=== PATIENT | female | born 1995 | race American Indian/Alaskan Native ===

== ENCOUNTER 2021-05-01 16:13 | Emergency (ER) | payer SELFPAY ==
[2021-05-01] MEDS ORDERED: ONDANSETRON 4 MG/2 ML INJ IV ONE ×2 (17:06→21:50)
[2021-05-01] MEDS ORDERED: SODIUM CHLORIDE 0.9% 1000 ML 1,000 ML IV ONE (17:06)
[2021-05-01] MEDS ORDERED: FAMOTIDINE 20 MG/2 ML INJ IV ONE (17:06)
[2021-05-01] MEDS ORDERED: DICYCLOMINE 20 MG/2 ML INJ IM ONE (17:06)
--- NOTE | 2021-05-01 17:10 | Emergency Department Report ---
ED General Adult HPI - General Chief complaint: Abdominal Pain Stated complaint: VOMITING/CHILLS Time Seen by Provider: 05/01/21 16:57 Source: patient Mode of arrival: Ambulatory Limitations: No Limitations - History of Present Illness Initial comments: 26-year-old female patient with history of endometriosis presents to the emergency department with complaints of chills, abdominal pain, nausea, and vomiting starting last night. Patient states she has experienced approximately 10 episodes of nonbloody emesis in the last 24 hours. Pain is localized to the left side of the abdomen. Patient reportedly began her menstrual cycle yesterday. Her last menstrual cycle was 4 weeks ago. No recent travel. No known sick contacts. No current steroid or antibiotic use. Patient attempted to take Tylenol and Aleve prior to arrival, but was unable to keep down the medications. No history of prior abdominal surgeries. Denies fever, diarrhea, constipation, painful urination, black/bloody stools. Denies all other complaints at this time. - Related Data Home Medications Medication Instructions Recorded Confirmed Last Taken Hyoscyamine Sulfate [Anaspaz] 0.125 mg PO Q4H PRN 09/28/13 09/28/13 09/28/13 19:00 Nitrofurantoin [place]/M-Cryst 100 mg PO Q12HR 09/28/13 09/28/13 09/28/13 19:00 [Macrobid] Ondansetron [Zofran] 4 mg PO Q8HR PRN 09/28/13 09/28/13 09/28/13 19:00 Previous Rx's Medication Instructions Recorded Last Taken Type Ranitidine HCl [Zantac] 300 mg PO QDAY #30 tablet 09/29/13 Unknown Rx Dicyclomine [Bentyl] 20 mg PO QID #20 tablet 05/02/21 Unknown Rx Metoclopramide [Reglan] 10 mg PO TID #20 tab 05/02/21 Unknown Rx levoFLOXacin [Levaquin] 750 mg PO QDAY 5 Days tablet 05/02/21 Unknown Rx metroNIDAZOLE [Flagyl] 500 mg PO Q12HR 5 Days tab 05/02/21 Unknown Rx Allergies Allergy/AdvReac Type Severity Reaction Status Date / Time No Known Allergies Allergy Unverified 05/21/13 10:43 ED Review of Systems ROS: Stated complaint: VOMITING/CHILLS Other details as noted in HPI Other: GENERAL: Positive for chills. ENT: Negative for ear pain, difficulty hearing, sore throat, nasal congestion, epistaxis. CARDIOVASCULAR: Negative for chest pain, palpitations, lower extremity swelling. PULMONARY: Negative for cough, dyspnea, wheezing, orthopnea, cyanosis. GASTROINTESTINAL: Positive for abdominal pain, nausea, vomiting. MUSCULOSKELETAL: Negative for joint pain, joint swelling, myalgias, back pain, neck pain. NEUROLOGICAL: Negative for headache, seizure, syncope, paresthesias, weakness. INTEGUMENTARY: Negative for erythema, rash, diaphoresis, laceration, ecchymosis. HEMATOLOGICAL: Negative for hemoptysis, hematemesis, hematochezia, hematuria. PSYCHIATRIC: Negative for hallucinations, suicidal ideation, homicidal ideation, anxiety, depression. ED Past Medical Hx - Past Medical History Previous Medical History?: Yes Additional medical history: l) ovarian cyst - Surgical History Past Surgical History?: No - Social History Smoking Status: Never Smoker Substance Use Type: None - Medications Home Medications: Home Medications Medication Instructions Recorded Confirmed Last Taken Type Hyoscyamine Sulfate [Anaspaz] 0.125 mg PO Q4H PRN 09/28/13 09/28/13 09/28/13 19:00 History Nitrofurantoin [place]/M-Cryst 100 mg PO Q12HR 09/28/13 09/28/13 09/28/13 19:00 History [Macrobid] Ondansetron [Zofran] 4 mg PO Q8HR PRN 09/28/13 09/28/13 09/28/13 19:00 History Ranitidine HCl [Zantac] 300 mg PO QDAY #30 tablet 09/29/13 Unknown Rx Dicyclomine [Bentyl] 20 mg PO QID #20 tablet 05/02/21 Unknown Rx Metoclopramide [Reglan] 10 mg PO TID #20 tab 05/02/21 Unknown Rx levoFLOXacin [Levaquin] 750 mg PO QDAY 5 Days tablet 05/02/21 Unknown Rx metroNIDAZOLE [Flagyl] 500 mg PO Q12HR 5 Days tab 05/02/21 Unknown Rx ED Physical Exam - General Limitations: No Limitations - Other Other exam information: General: Awake and alert. Appears uncomfortable. Actively vomiting on exam. Head: Atraumatic, normocephalic. Eyes: EOMI. Pupils are equal and round. Normal sclera and conjunctiva. ENT: Oral mucosa is moist. Normal pharyngeal exam. Neck: Supple. No lymphadenopathy. Pulmonary: No respiratory distress. Clear to auscultation bilaterally. Cardiac: Regular rate and rhythm. Pulses are palpable and equal bilaterally. No lower extremity cyanosis or edema. Skin: Warm and dry. No rashes. Abdomen: Soft, non-protuberant. Suprapubic and left lower quadrant tenderness without guarding, rigidity, or rebound. Bowel sounds are normal. No organomegaly or masses noted. Back: Normal alignment. No CVA tenderness. Extremities: Symmetrical. Full range of motion intact. Neurological: Alert and oriented, appropriately interactive, no focal deficits. Psych: Cooperative. Appropriate mood and affect. Speech is evenly metered. Thoughts are logically construed. ED Course Vital Signs 05/01/21 16:53 Temperature 98.1 F Pulse Rate 70 Respiratory 16 Rate Blood Pressure 155/75 [Left] O2 Sat by Pulse 98 Oximetry ED Medical Decision Making - Lab Data Result diagrams: 05/01/21 17:39 05/01/21 17:39 - Radiology Data [facility] [address] [place] [address] Cat Scan Report Signed Patient: LUCINA DEVLIN MR#: [id number] : 1995 Acct:[id number] Age/Sex: 26 / F ADM Date: 05/01/21 Loc: ED Attending Dr: Ordering Physician: HARVEY GUTIERREZ Date of Service: 05/01/21 Procedure(s): CT abdomen pelvis w con Accession Number(s): [id number] cc: HARVEY GUTIERREZ CT ABDOMEN AND PELVIS WITH CONTRAST HISTORY: lower abdominal pain + vomiting. COMPARISON: None. TECHNIQUE: CT images of the abdomen and pelvis were obtained following ad ministration of intravenous contrast. All CT scans at this location are performed using CT dose reduction for ALARA by means of automated exposure control. CONTRAST: 100 ml of intravenous contrast administered. FINDINGS: Lungs/bones: Lung bases are clear Abdomen/pelvis: Mild fatty infiltration the liver. Otherwise the liver, spleen, adrenal glands, pancreas, gallbladder and upper GI tract appear normal. There is a large cystic lesion within the pelvis measuring 4.9 cm. Additional cystic lesion somewhat tubular within the right pelvis and dilated fallopian tubes not excluded. There is fatty infiltration with bowel wall thickening within the cecum and ascending colon. There is some thickening of the distal sigmoid colon urinary bladder appears normal. No acute bone findings are seen. IMPRESSION: 1. There are large cystic lesions within the pelvis. The large fluid-filled cystic appearing lesion measures 4.9 cm. There are also multiple fluid-filled structures which could represent dilated tubes. Findings could represent bilateral large adnexal cyst. Dilatation of the fallopian tubes which could represent infection. Tubo-ovarian abscess cannot be excluded. Further evaluation with pelvic ultrasound and follow-up with [employer] [facility]. 2. Diffuse thickening with fatty infiltration of the cecum, ascending colon and distal terminal ileum. Findings could represent Crohn's disease/inflammatory bowel disease. Clinical correlation. No bowel obstruction. No surrounding free fluid. Signer Name: Cesar Isabel MD Signed: 05/01/2021 9:31 PM Workstation Name: [id number] Transcribed By: CW Dictated By: VITA ISABEL MD Electronically Authenticated By: VITA ISABEL MD Signed Date/Time: 05/01/212130 [facility] [address] [place] [address] Ultrasound Report Signed Patient: LUCINA DEVLIN MR#: [id number] : 1995 Acct:[id number] Age/Sex: 26 / F ADM Date: 05/01/21 Loc: ED Attending Dr: Ordering Physician: HARVEY GUTIERREZ Date of Service: 05/01/21 Procedure(s): US transvaginal Accession Number(s): [id number] cc: HARVEY GUTIERREZ ULTRASOUND PELVIS INDICATION: abnormal CT, salpingitis vs. tubo-ovarian abscess. CT abdomen pelvis earlier today. TECHNIQUE: Transvaginal. Duplex Color Doppler used: Yes. COMPARISON: None available FINDINGS: Uterus: Present. Size: 8.0 x 5.4 x 6.1 cm. Endometrial complex: Normal measuring 5 mm. Mass lesions: 2 uterine leiomyomas, largest measuring 3.4 cm Additional findings: None. Right Ovary -- Normal. Blood flow: Normal. Cyst or mass: 2.3 x 1.1 x 1.6 cm cyst Left Ovary--not visualized sonographically and high in position on CT superior to the uterine fundus. Urinary Bladder: Normal. Free Fluid: None. Additional Findings: None. IMPRESSION: 1. Left ovary not visualized. The complex cyst within the left ovary is superior to the uterus on CT area 2. Leiomyomatous uterus. 3. 2.3 cm right ovarian cyst. 4. No sonographic evidence for hydrosalpinx/tubo-ovarian abscess. Signer Name: Lenny Soliman MD Signed: 05/02/2021 12:43 AM Workstation Name: [id number] Transcribed By: MARIKA Dictated By: Lenny Soliman MD Electronically Authenticated By: Lenny Soliman MD Signed Date/Time: 05/02/2142 DD/ TD/TT: DD/ 27 TD/TT: - Medical Decision Making Differential diagnosis including but not limited to: pyelonephritis, nephrolithiasis, urinary tract infection, diverticulitis, ovarian cyst/torsion, / related complication, pelvic inflammatory disease, salpingitis, tubo-ovarian abscess On reevaluation, patient remains stable. Pain and nausea are controlled. Labs consistent with mild dehydration. Given IV fluids. test is negative. Urinalysis consistent with UTI. CT of the abdomen/pelvis shows multiple large cystic lesions and fluid-filled structures within the pelvis as well as diffuse thickening and fatty infiltration of the large intestine, suggestive of possible inflammatory bowel disease. Transvaginal ultrasound was performed for further evaluation of [employer] findings on CT scan, which showed leiomyomatous uterus and multiple ovarian cysts. No radiographic evidence of bowel obstruction, free fluid, tubo-ovarian abscess, or ovarian torsion. No fever or vaginal discharge to suggest pelvic inflammatory disease. Suspect patient's overall clinical presentation is more consistent with suggested intestinal etiology as shown on CT scan however patient has been referred to drop wire operator for close outpatient follow-up regarding ultrasound results. Treated empirically with IV Levaquin (which will also treat UTI) and IV Flagyl and referred to swatch paster for close outpatient follow-up. Discharged home with prescriptions for appropriate symptomatic treatment. Patient expressed understanding and is agreeable to plan of care. Strict return precautions provided. Repeat exam is unremarkable and benign. History, exam, diagnostic testing, and current condition do not suggest worrisome pathology to warrant further testing, continued ED treatment, admission, or surgical evaluation at this point. Given the low probability of a significant medical illness, it would be more likely to result in harm than benefit to perform further testing at this stage. Discussed findings, presumptive diagnosis, need for follow-up and specific signs/symptoms that should prompt immediate return to the emergency department. Instructions were explained in detail to the patient in addition to giving written discharge information. Patient expressed understanding and was given the opportunity to ask questions, all of which were satisfactorily answered prior to discharge home. Critical care attestation.: If time is entered above; I have spent that time in minutes in the direct care of this critically ill patient, excluding procedure time. ED Disposition Clinical Impression: Colonic thickening Ovarian cyst Qualifiers: Laterality: unspecified laterality Qualified Code(s): N83.209 - Unspecified ovarian cyst, unspecified side Urinary tract infection Qualifiers: Urinary tract infection type: site unspecified Hematuria presence: with hemat uria Qualified Code(s): N39.0 - Urinary tract infection, site not specified Disposition: HOME / SELF CARE / HOMELESS Is pt being admited?: No Does the pt Need Aspirin: No Condition: Stable Instructions: Abdominal Pain, Adult, [id number], Abdominal Pain (ED) Additional Instructions: Take Tylenol every 4 hours as needed for pain. Take Bentyl as directed for intestinal discomfort. Take Reglan as directed for nausea/vomiting. Take Levaquin and Flagyl with food as directed until complete. Increase your dietary intake of probiotic rich foods while taking these medications. Do not consume any alcohol while taking Flagyl. Limit physical activity while taking Levaquin. Rest. Drink plenty of fluids. Gradually advance diet slowly as tolerated. Follow-up with primary care provider, drop wire operator, and swatch paster this week. Call tomorrow to schedule appointments. See referral information below. Bring a copy of today's imaging results with you to your follow-up appointments. Return to the emergency department immediately for new or worsening symptoms. Specifically, return to the emergency department immediately for fever, worsening pain, dehydration, black/bloody stools, difficulty using the bathroom, abnormal vaginal bleeding or loss of vaginal fluid, or any other concerns. Prescriptions: Dicyclomine [Bentyl] 20 mg PO QID #20 tablet metroNIDAZOLE [Flagyl] 500 mg PO Q12HR 5 Days tab levoFLOXacin [Levaquin] 750 mg PO QDAY 5 Days tablet Metoclopramide [Reglan] 10 mg PO TID #20 tab Referrals: WILSON QUIÑONEZ MD [Staff Physician] - 3-5 Days [facility] [Provider Group] - 3-5 Days [facility] [Provider Group] - 3-5 Days [facility] [Provider Group] - 3-5 Days Forms: Work/School Release Form(ED) Time of Disposition: 01:04
[2021-05-01 17:54] LABS: Basophils # (Auto) 0.1 K/mm3 (0.0-0.1); Basophils % (Auto) 1.1 % (0.0-1.8); Eosinophils # (Auto) 0.1 K/mm3 (0.0-0.4); Eosinophils % (Auto) 0.6 % (0.0-4.3); Hematocrit 32.7 % (30.3-42.9); Hemoglobin 10.4 gm/dl (10.1-14.3); Lymphocytes % (Auto) 9.5 % (13.4-35.0); Mean Corpuscular HGB Conc 32 % (30-34); Monocytes # (Auto) 0.5 K/mm3 (0.0-0.8); Monocytes % (Auto) 4.9 % (0.0-7.3); Platelet Count 370 K/mm3 (140-440); Red Blood Count 5.15 M/mm3 (3.65-5.03); Red Cell Distribution Width 18.6 % (13.2-15.2)
[2021-05-01 17:55] LABS: Mean Corpuscular Volume 64 fl (79-97)
[2021-05-01 18:12] LABS: Alanine Aminotransferase 14 units/L (7-56); Albumin 4.5 g/dL (3.9-5); Blood Urea Nitrogen 11 mg/dL (7-17); Calcium 9.5 mg/dL (8.4-10.2); Hemolysis Index 4
[2021-05-01 18:14] LABS: BUN/Creatinine Ratio 16
[2021-05-01 18:36] LABS: Bilirubin,Urine NEG (Negative); Blood,Urine LG (Negative); Color,Urine Red (Yellow); Mucus,Urine 1+ /HPF; Urobilinogen,Urine < 2.0 mg/dL (<2.0)
[2021-05-01 18:37] LABS: Protein,Urine >500 mg/dL (Negative); RBC,Urine > 182.0 /HPF (0.0-6.0)
[2021-05-01] MEDS ORDERED: FLUCONAZOLE 100 MG TAB PO ONE (19:58)
[2021-05-01] MEDS ORDERED: FLUCONAZOLE 200 MG TAB PO ONE (19:58)
--- NOTE | 2021-05-01 21:35 | Cat Scan Report ---
CT ABDOMEN AND PELVIS WITH CONTRAST HISTORY: lower abdominal pain + vomiting. COMPARISON: None. TECHNIQUE: CT images of the abdomen and pelvis were obtained following administration of intravenous contrast. All CT scans at this location are performed using CT dose reduction for ALARA by means of automated exposure control. CONTRAST: 100 ml of intravenous contrast administered. FINDINGS: Lungs/bones: Lung bases are clear Abdomen/pelvis: Mild fatty infiltration the liver. Otherwise the liver, spleen, adrenal glands, panc reas, gallbladder and upper GI tract appear normal. There is a large cystic lesion within the pelvis measuring 4.9 cm. Additional cystic lesion somewhat tubular within the right pelvis and dilated fallopian tubes not excluded. There is fatty infiltration with bowel wall thickening within the cecum and ascending colon. There is some thickening of the dis franchesca sigmoid colon urinary bladder appears normal. No acute bone findings are seen. IMPRESSION: 1. There are large cystic lesions within the pelvis. The large fluid-filled cystic appearing lesion m easures 4.9 cm. There are also multiple fluid-filled structures which could represent dilated tubes. Findings could represent bilateral large adnexal cyst. Dilatation of the fallopian tubes which could represent infection. Tubo-ovarian abscess cannot be excluded. Further evaluation with pelvic ultrasou nd and follow-up with [facility] [employer]. 2. Diffuse thickening with fatty infiltration of the cecum, ascending colon and distal terminal ileum . Findings could represent Crohn's disease/inflammatory bowel disease. Clinical correlation. No bowel obstruction. No surrounding free fluid. Signer Name: Cesar Isabel MD Signed: 05/01/2021 9:31 PM Workstation Name: [id number]
[2021-05-01] MEDS ORDERED: MORPHINE 4 MG/1 ML INJ IV ONE (21:50)
--- NOTE | 2021-05-02 00:47 | Ultrasound Report ---
ULTRASOUND PELVIS INDICATION: abnormal CT, salpingitis vs. tubo-ovarian abscess. CT abdomen pelvis earlier today. TECHNIQUE: Transvaginal. Duplex Color Doppler used: Yes. COMPARISON: None available FINDINGS: Uterus: Present. Size: 8.0 x 5.4 x 6.1 cm. Endometrial complex: Normal measuring 5 mm. Mass lesions: 2 uterine leiomyomas, largest measuring 3.4 cm Additional findings: None. Right Ovary -- Normal. Blood flow: Normal. Cyst or mass: 2.3 x 1.1 x 1.6 cm cyst Left Ovary--not visualized sonographically and high in position on CT superior to the uterine fundus. Urinary Bladder: Normal. Free Fluid: None. Additional Findings: None. IMPRESSION: 1. Left ovary not visualized. The complex cyst within the left ovary is superior to the uterus on CT area 2. Leiomyomatous uterus. 3. 2.3 cm right ovarian cyst. 4. No sonographic evidence for hydrosalpinx/tubo-ovarian abscess. Signer Name: Lenny Soliman MD Signed: 05/02/2021 12:43 AM Workstation Name: [id number]
[2021-05-02] MEDS ORDERED: metroNIDAZOLE/NS 500 MG/100 ML 500 MG/100 ML BAG IV ONE (00:57)
[2021-05-02] MEDS ORDERED: MORPHINE 2 MG/1 ML INJ IV ONE (01:08)
[2021-05-02 02:01] VITALS: BP 117/70
== END 2021-05-02 02:11 | disposition home or self-care (01) ==
LOC: ED 16:13
DX: N83.209 Unspecified ovarian cyst, unspecified side (principal); K63.89 Other specified diseases of intestine
CPT/HCPCS: 36415; 74177; 76830; 80053; 81001; 83690; 83735; 84702; 85025; 87086; 96361; 96365; 96368; 96372; 96375; 96376; 99284; J0500; J1956; J2270; J2405; J7030; Q9967